=== PATIENT | female | born 1970 | race Caucasian/White ===

== ENCOUNTER 2024-12-12 16:11 | Emergency (ER) | payer BC, SELFPAY ==
[2024-12-12 16:16] VITALS: BP 167/96; PULSE 132; TEMP 37.9; O2SAT 99; BMI 44.7
--- NOTE | 2024-12-12 16:23 | ED.GENADUL1 ---
HPI HPI - General Adult General Chief complaint: Nausea/Vomiting/Diarrhea Stated complaint: UTI Vomitting Time Seen by Provider: 12/12/24 16:16 Mode of arrival: walk-in History of Present Illness HPI narrative: 54-year-old female presents here with chief complaint of burning with urination that began yesterday. She states she woke this morning with chills back pain and nausea and vomiting. She states she is feeling worse as the day goes on. Last urinary tract infection was over 15 years ago. Patient is currently febrile. She does not appear toxic. Her abdomen soft nontender to palpation. She states burning with urination continues. Related Data Previous Rx's ?Medication ?Instructions ?Recorded cephalexin 500 mg capsule 500 mg PO TID 10 days #30 caps 12/12/24 ondansetron 4 mg disintegrating 4 mg PO Q8H PRN nausea and 12/12/24 tablet vomiting 3 days #10 tabs Allergies Allergy/AdvReac Type Severity Reaction Status Date / Time morphine AdvReac Anaphylaxis Verified 12/12/24 16:16 Opioid HPI Opioid Management Most Recent Opioid Data: Last JAN Pain Assessment 12/12/24 16:48 Review of Systems ROS Narrative All Systems are negative except as noted/marked.All systems reviewed and otherwise negative PFSH PFSH Social History Little interest or pleasure in doing things: not at all Feeling down, depressed, or hopeless: not at all Exam Narrative Exam Narrative: Nurses note and vital signs reviewed and patient is not hypoxic. General: The patient appears well and in no apparent distress. Patient is resting comfortably on cart. Skin: Warm, dry, no pallor noted. There is no rash noted. Head: Normocephalic, atraumatic Eye: Normal conjunctiva, no drainage, EOMI. PERRL Ears, Nose, Mouth, and Throat: oral mucosa is moist. Nares patent. Mouth without vesicles. Ear canals patent. Tm's without Erythema Cardiovascular: Regular Rate and Rhythm Respiratory: Patient is in no distress, no accessory muscle use, lungs are clear to auscultation, no wheezing, rales or rhonchi Back: non-tender, no CVA tenderness bilaterally to percussion. GI: Normal bowel sounds, no tenderness to palpation, no masses appreciated. No rebound, guarding, or rigidity noted. Musculoskeletal: The patient has no evidence of calf tenderness, no pitting edema, symmetrical pulses noted bilaterally Neurological: A&O x4, normal speech Psychiatric: Cooperative Constitutional Vital Signs, click to edit/add: Last Vital Signs Temp 100.3 F 12/12/24 16:16 Pulse 95 H 12/12/24 19:13 Resp 18 12/12/24 19:13 BP 118/80 12/12/24 19:13 Pulse Ox 97 12/12/24 19:13 O2 Del Method Room Air 12/12/24 19:13 Course Vital Signs Vital signs: Vital Signs Temperature 100.3 F 12/12/24 16:16 Pulse Rate 132 H 12/12/24 16:16 Respiratory Rate 24 H 12/12/24 16:16 Blood Pressure 167/96 H 12/12/24 16:16 Pulse Oximetry 99 12/12/24 16:16 Oxygen Delivery Method Room Air 12/12/24 16:16 Temperature 100.3 F 12/12/24 16:16 Pulse Rate 95 H 12/12/24 19:13 Respiratory Rate 18 12/12/24 19:13 Blood Pressure 118/80 12/12/24 19:13 Pulse Oximetry 97 12/12/24 19:13 Oxygen Delivery Method Room Air 12/12/24 19:13 Medical Decision Making MDM Narrative Medical decision making narrative: 54-year-old female presents here with chief complaint of burning with urination that began yesterday. She states she woke this morning with chills back pain and nausea and vomiting. She states she is feeling worse as the day goes on. Last urinary tract infection was over 15 years ago. Patient is currently febrile. She does not appear toxic. Her abdomen soft nontender to palpation. She states burning with urination continues. Presenting here with chief complaint of dysuria and increased urinary frequency with fever. She stated her urinary symptoms that started the day before yesterday and worsened throughout the day she was trying to flush her system to help with her infection. She states she has not had a urinary tract infection for several years. Urinalysis today is positive for UTI with nitrates W these red blood cells. Patient's white blood cell count is elevated at 19 3. Patient states she had had a fever and also vomiting earlier today. She has been given IV fluids Zofran and Phenergan. Urinalysis was positive and patient was medicated here with Rocephin. Signs of acute abdomen. We discussed CT scan and patient agrees to to not have CT scan at this time. I do not believe it is necessary she has not had any flank pain she has no right lower quadrant pain shows no signs of acute abdomen. Patient is feeling much better at this time once her fluids and antibiotics are complete she agrees and she would wish to go home. Reasons to return to the emergency room were discussed and patient agrees to go home she will be discharged home with Zofran and Keflex. She is currently pain-free. Differential Diagnosis Differential Diagnosis: uti, kidney stone. Medical Records Medical records reviewed: Yes I reviewed the patient's medical records Lab Data Lab results reviewed: Yes I reviewed the patient's lab results Labs: Lab Results 12/12/24 12/12/24 Range/Units 16:34 17:27 WBC 19.3 H (4.0-11.0) 10^3/uL RBC 4.84 (4.20-5.40) 10^6/uL Hgb 15.1 (12.0-16.0) g/dL Hct 44.3 (36.0-48.0) % MCV 91.5 (81.0-99.0) fL MCH 31.2 (26.7-34.0) pg MCHC 34.1 (29.9-35.2) g/dL RDW 13.3 (11.0-15.0) % Plt Count 218 (150-450) 10^3/uL MPV 12.1 (9.5-13.5) fL Neut % (Auto) 86.7 H (43.0-75.0) % Lymph % (Auto) 7.6 L (20.5-60.0) % [place] % (Auto) 4.8 (1.7-12.0) % Eos % (Auto) 0.1 L (0.9-7.0) % Baso % (Auto) 0.3 (0.2-2.0) % Neut # (Auto) 16.7 H (1.4-6.5) 10^3/uL Lymph # (Auto) 1.5 (1.2-3.8) 10^3/uL [place] # (Auto) 0.9 H (0.3-0.8) 10^3/uL Eos # (Auto) 0.0 (0.0-0.7) 10^3/uL Baso # (Auto) 0.1 (0.0-0.1) 10^3/uL Abs Immat Gran (auto) 0.10 H (0.00-0.03) 10^3/uL Imm/Tot Granulo (auto) 0.5 (0.0-0.5) % Sodium 140 (136-145) mmol/L Potassium 3.9 (3.5-5.1) mmol/L Chloride 103 (98-107) mmol/L Carbon Dioxide 23.7 (21.0-32.0) mmol/L Anion Gap 17.2 BUN 13.0 (7.0-18.0) mg/dL Creatinine 1.30 H (0.55-1.02) mg/dL Est GFR ( Amer) 52 L (>=60 mL/min/1.73m^2) Est GFR (Non-Af Amer) 43 L (>=60 mL/min/1.73m^2) BUN/Creatinine Ratio 10.0 Glucose 192 H (74-106) mg/dL Calcium 9.1 (8.5-10.1) mg/dL Total Bilirubin 2.8 H (0.2-1.0) mg/dL AST 58 H (15-37) U/L ALT 72 H (14-59) U/L Alkaline Phosphatase 142 H (46-116) U/L Total Protein 7.8 (6.4-8.2) g/dL Albumin 3.5 (3.4-5.0) g/dL Globulin 4.3 g/dL Albumin/Globulin Ratio 0.8 Urine Color Yellow (YELLOW) Urine Clarity Sl cloudy (CLEAR) Urine pH 6.0 (5.0-9.0) Ur Specific [place] 1.025 (1.005-1.025) Urine Protein 100 A (NEG/TRACE) mg/dL Urine Glucose (UA) Negative (NEGATIVE) mg/dL Urine Ketones 40 A (NEGATIVE) mg/dL Urine Occult Blood Moderate A (NEGATIVE) Urine Nitrite Positive A (NEGATIVE) Urine Bilirubin Small A (NEGATIVE) Urine Urobilinogen 1.0 (0.2-1.0) EU/dL Ur Leukocyte Esterase Moderate A (NEGATIVE) Urine RBC 5-10 A (0-2) #/HPF Urine WBC 75-100 A (NONE SEEN) #/HPF Ur Squamous Epith Cells Few A (NONE/RARE) #/LPF Urine Crystals None seen (None Seen) #/HPF Urine Bacteria Small A (NONE SEEN) #/HPF Urine Casts None seen (NONE SEEN) #/LPF Urine Mucus None seen (NONE SEEN) Ur Culture Indicated? Yes Discharge Plan Discharge Chief Complaint: Nausea/Vomiting/Diarrhea Clinical Impression: UTI (urinary tract infection) Patient Disposition: Home, Self-Care Time of Disposition Decision: 18:57 Condition: Good Mode of Transportation: Private Vehicle Prescriptions / Home Meds: New cephalexin 500 mg capsule 500 mg PO TID 10 Days Qty: 30 0RF ondansetron 4 mg tablet,disintegrating 4 mg PO Q8H PRN (Reason: nausea and vomiting) 3 Days Qty: 10 0RF Print Language: [place] Instructions: Urinary Tract Infection in Women (ED) Referrals: Physician,Non-Staff, [Physician] - 1 week Discharge Date/Time: 12/12/24 19:15
[2024-12-12] MEDS: KETOROLAC TROMETHAMINE 30 MG/ML VIAL IVP (16:48)
[2024-12-12] MEDS: 0.9 % SODIUM CHLORIDE 1,000 ML 100 ML IV (16:48)
[2024-12-12] MEDS: ONDANSETRON PF 4 MG/2 ML VIAL IV (16:48)
[2024-12-12] MEDS: ACETAMINOPHEN 500 MG TABLET 1000 MG PO (17:05)
[2024-12-12 17:07] LABS: Basophils Absolute Auto 0.1 10^3/uL (0.0-0.1); Basophils Percent Auto 0.3 % (0.2-2.0); Eosinophils Percent Auto 0.1 % (0.9-7.0); Hematocrit 44.3 % (36.0-48.0); Hemoglobin 15.1 g/dL (12.0-16.0); Immature Granulocytes Pct Auto 0.5 % (0.0-0.5); Lymphocytes Absolute Auto 1.5 10^3/uL (1.2-3.8); Lymphocytes Percent Auto 7.6 % (20.5-60.0); Mean Corpuscular HGB Conc 34.1 g/dL (29.9-35.2); Mean Corpuscular Hemoglobin 31.2 pg (26.7-34.0); Mean Corpuscular Volume 91.5 fL (81.0-99.0); Mean Platelet Volume 12.1 fL (9.5-13.5); Monocytes Absolute Auto 0.9 10^3/uL (0.3-0.8); Monocytes Percent Auto 4.8 % (1.7-12.0); Neutrophils Absolute Auto 16.7 10^3/uL (1.4-6.5); Neutrophils Percent Auto 86.7 % (43.0-75.0); Platelet Count 218 10^3/uL (150-450); Red Blood Count 4.84 10^6/uL (4.20-5.40); Red Cell Distribution Width 13.3 % (11.0-15.0); White Blood Count 19.3 10^3/uL (4.0-11.0)
[2024-12-12 17:24] LABS: Alanine Aminotransferase 72 U/L (14-59); Albumin Globulin Ratio 0.8; Albumin Level 3.5 g/dL (3.4-5.0); Alkaline Phosphatase 142 U/L (46-116); Anion Gap 17.2; Aspartate Amino Transferase 58 U/L (15-37); Bilirubin Total 2.8 mg/dL (0.2-1.0); Calcium 9.1 mg/dL (8.5-10.1); Carbon Dioxide 23.7 mmol/L (21.0-32.0); Chloride 103 mmol/L (98-107); Estimated GFR (African America 52 (>=60 mL/min/1.73m^2); Estimated GFR (Non-African Ame 43 (>=60 mL/min/1.73m^2); Globulin 4.3 g/dL; Glucose 192 mg/dL (74-106); Potassium 3.9 mmol/L (3.5-5.1); Sodium 140 mmol/L (136-145); Total Protein 7.8 g/dL (6.4-8.2)
[2024-12-12 17:38] LABS: Clarity Urine SL CLOUDY (CLEAR); Color Urine YELLOW (YELLOW); Specific Gravity Urine 1.025 (1.005-1.025)
[2024-12-12 17:39] LABS: Bilirubin Urine SMALL (NEGATIVE); Blood Urine MODERATE (NEGATIVE); Glucose Urine UA NEGATIVE (NEGATIVE); Ketones Urine 40 mg/dL (NEGATIVE); Leukocyte Esterase Urine MODERATE (NEGATIVE); Nitrite Urine POSITIVE (NEGATIVE); Protein Urine 100 mg/dL (NEG/TRACE); Urine Microscopic Indicated YES
[2024-12-12 17:43] LABS: Bacteria Urine SMALL #/HPF (NONE SEEN); WBC Urine 75-100 #/HPF (NONE SEEN)
[2024-12-12 17:44] LABS: Cast Seen? NONE SEEN #/LPF (NONE SEEN); Crystals Seen? None Seen #/HPF (None Seen); Mucus Urine NONE SEEN (NONE SEEN); Squamous Epithelial Cell Urine FEW #/LPF (NONE/RARE); Urine Culture Indicated YES
[2024-12-12] MEDS: CEFTRIAXONE 1,000 MG in 0.9 % SODIUM CHLORIDE 50 ML 100 MG IV (18:01)
[2024-12-12] MEDS: PROMETHAZINE HCL 25 MG in 0.9 % SODIUM CHLORIDE 50 ML 204 MG IV (18:21)
[2024-12-12 19:13] VITALS: BP 118/80; PULSE 95; O2SAT 97
== END 2024-12-12 19:15 | disposition home or self-care (01) ==
PROVIDERS: Physician Assistant; Emergency Provider Emergency Medicine; PCP Family Medicine
DX: N39.0 Urinary tract infection, site not specified (principal); Z87.440 Personal history of urinary (tract) infections; R50.9 Fever, unspecified
CPT/HCPCS: 36415; 80053; 81001; 85025; 87086; 87150; 87186; 96361; 96365; 96368; 96375; 99285; J0696; J1885; J2405; J2550